=== PATIENT | female | born 1960 | race Caucasian/White ===

== ENCOUNTER 2021-12-30 06:06 | Observation (INO) | payer BC ==
[2021-12-30] VITALS (10 sets, daily range): BP systolic 121–165; BP diastolic 63–93; PULSE 45–80; TEMP 97.5–98.6
[2021-12-30] MEDS ORDERED: METAMUCIL3.4 GM/Dos PO (07:28)
[2021-12-30] MEDS ORDERED: SENNA-S 50 MG-81 TAB PO (07:28)
[2021-12-30] MEDS ORDERED: FLONASEALLERGY NS (07:29)
--- NOTE | 2021-12-30 13:02 | NUR ---
PT ARRIVED TO ROOM 327 @ 1045, ACCOMPANYING. ANUJA WRAP DRESSING ET ICE PACK IN PLACE TO LEFT KNEE. SCDS IN PLACE TO BILATERAL LEGS. PT IS A&O X3, DID NOT HAVE ANY FEELING TO HER BLE WHEN ARRIVING, HAS SINCE BEGUN TO HAVE A TINGLING SENSATION IN HER BILATERAL FEET ET SENSES LIGHT TOUCH. PT DENIES PAIN. HOB IS ELEVATED ET PT IS EATING LUNCH, TOLERATING WELL WITH NO NAUSEA.
[2021-12-30 13:04] LABS: CALCIUM 8.4 mg/dL (8.4-10.2); CREATININE, serum 0.73 mg/dL (0.57-1.11); MAGNESIUM 1.8 mg/dL (1.6-2.6); POTASSIUM 3.9 mmol/L (3.5-4.5)
--- NOTE | 2021-12-30 14:30 | NUR ---
PT RESTING IN BED, HAS LEFT KNEE ELAVTED. PT REPORTS THAT PHYSICAL THERAPY HELPED HER UP TO THE BR A SHORT WHILE AGO ET SHE WAS ABLE TO URINATE. PT STATES THAT SHE NOW HAS MORE FEELING IN HER BILATERAL FEET BUT IS STILL HAVING SOME TINGLING. PT DENIES PAIN, IS ENCOURAGED TO LET STAFF KNOW WHEN SHE BEGINS HAVING ANY, VERBALIZES UNDERSTANDING.
--- NOTE | 2021-12-30 18:20 | NUR ---
PT IN BED RESTING, HAS EATEN DINNER, SPOUSE IS @ BEDSIDE. PT HAS BEEN UP TO THE BR TO URINATE, UTILIZES WALKER ET GAIT BELT. PT TOLERATES WELL BUT DOES HAVE SOME INCREASED PAIN WITH MOVEMENT OF HER LEGS. PO ROXICODONE WAS ADMINISTERED ET PT STATES THAT IT DID RELIEVE PAIN.
[2021-12-31 00:20] VITALS: BP 122/62; PULSE 67; TEMP 98.5
[2021-12-31 04:36] VITALS: BP 122/83; PULSE 65; TEMP 98.6
[2021-12-31 06:45] LABS: HEMATOCRIT 38.1 % (37.0-47.0); HEMOGLOBIN 12.3 g/dl (12.5-16.0)
[2021-12-31 07:47] VITALS: BP 169/80; PULSE 50; TEMP 97.4
--- NOTE | 2021-12-31 10:17 | NUR ---
Ict Business Development Manager met with patient to discuss discharge planning. Patient lives in [place], [place] with her , David (ph#[phone]) and sees Dr. Edwin Aaron for primary care. Patient obtains medications from [facility] in [place] with no difficulties and reports she is retired. Patient uses a CPAP at home and no other DME, but needs assistance ordering a front wheeled walker for recovery from her surgery. Patient is agreeable to have FWW ordered from [facility]. Patient is normally independent with ADLS and plans to return home at discharge. Patient has used [facility] in the past and plans to call them to get established for care again. SW contacted [facility] and faxed referral/order for FWW. Discharge Plan: Home, SW assisting with FWW
--- NOTE | 2021-12-31 10:23 | NUR ---
PT CONTINUES TO HAVE PAIN AFTER PO ROXICODONE ADMINISTRATION BUT STATES THAT IT IS MILD. PT REFUSING DEMEROL INJECTION @ THIS TIME, WOULD LIKE TO HOLD OFF, STATES THAT SHE WILL INFORM STAFF IF PAIN INCREASES. PT HAS BEEN HAVING "CRAMPING" PAIN IN HER LEFT CALF. PT ENCOURAGED TO CONTINUE EXERCISES WHILE SITTING IN CHAIR, HEATING PAD IS IN PLACE. PT DENIES NEEDS. CALL LIGHT WITHIN REACH.
[2021-12-31 11:50] VITALS: BP 137/69; PULSE 48; TEMP 98.4
--- NOTE | 2021-12-31 12:21 | NUR ---
Elva: Hindu Situation: Associate Software Application Engineer stopped by on rounds Background: PT seems well content. 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 Assessment: PT has a strong elva. She seems very encouraged today Recommendation: Associate Software Application Engineer will follow up as needed
[2021-12-31 15:53] VITALS: BP 120/62; PULSE 54; TEMP 97.6
--- NOTE | 2021-12-31 18:20 | NUR ---
PT EATING DINNER IN BED WITH HOB ELEVATED, @ BEDSIDE. LEFT LEG ELEVATED ET ICE PACK IS ON. PT CONTINUES TO HAVE LEFT CALF PAIN, STATES THAT KNEE PAIN IS MINIMAL ET ONLY WITH MOVEMENT. PT DESCRIBES CALF PAIN BURNING, WORSENS WITH MOVEMENT. PEDAL PULSES EASILY PALPATED. SCDs ET RALPH HOSE IN PLACE TO BILATERAL LEGS.
--- NOTE | 2021-12-31 19:38 | NUR ---
ASSSESSMENT COMPLETE. PT. SITTING UP IN BED WATCHING TV. A&O. COMPLAINING OF BURNING PAIN IN LEFT KNEE AND SOME TIGHTNESS IN THAT THIGH. DRESSING IS CD&I. INT TO RIGHT HAND. CALL LIGHT IN REACH. NO FURTHER NEEDS AT THIS TIME.
[2021-12-31 20:17] VITALS: BP 132/63; PULSE 60; TEMP 98.2
[2022-01-01 00:04] VITALS: BP 167/80; PULSE 54; TEMP 98.1
[2022-01-01 04:18] VITALS: BP 156/91; BP 180/78; PULSE 50; TEMP 98.8
--- NOTE | 2022-01-01 05:53 | NUR ---
PT. SPENT THE NIGHT SLEEPING WITH A DOSE OF CORAL AND TYLENOL GIVEN BEFORE MIDNIGHT (SEE EMAR). PT. WOULD LIKE TO HOLD NEXT DOSE OF CORAL UNTIL CLOSER TO TIME FOR PT. CALL LIGHT IN REACH. NO FURTHER NEEDS AT THIS TIME.
--- NOTE | 2022-01-01 06:50 | NUR ---
Pt reports that she is doing okay right now. Pt aware of the doppler that she will be having today, then she is hopeful to get to go home after. Pt reports wanting to take something for pain prior to therapy. No needs verbalized at this time, will continue to monitor
[2022-01-01 06:56] LABS: HEMOGLOBIN 11.7 g/dl (12.5-16.0)
[2022-01-01 07:03] LABS: HEMATOCRIT 35.7 % (37.0-47.0)
[2022-01-01 08:09] VITALS: BP 161/83; PULSE 55; TEMP 97.5
--- NOTE | 2022-01-01 08:25 | NUR ---
Doppler has been completed, no DVT seen. PRN roxicodone given, pain 5/10. Pt has not ordered breakfast yet, says she will soon. Pt is aware that therapy will be around soon to work with her. Aquacell to left knee. Removed mayte wrap for doppler to be completed. Left leg elevated on pillow, not below knee. Fresh ice pack applied. Pt removed wrap from left arm and is reapplying. Morning medications given, no needs verbalized, call light within reach
[2022-01-01] MEDS ORDERED: ULTRAM ER100 MG PO ×3 (09:03→09:58)
[2022-01-01] MEDS ORDERED: CEPHALEXIN500 M1 PO (09:04)
[2022-01-01] MEDS ORDERED: ZOHYDRO ER50 MG PO ×3 (09:06→09:58)
[2022-01-01] MEDS ORDERED: ASPI325T6 PO (09:07)
--- NOTE | 2022-01-01 09:58 | NUR ---
Pt has worked with PT and OT. OT assisted her with getting a shower. Pt happy to be going home today. Awaiting a walker from supply
--- NOTE | 2022-01-01 11:13 | NUR ---
Reviewed discharge instructions with pt and her spouse. All questions answered. INT removed from right hand. Awaiting walker at this time
--- NOTE | 2022-01-01 11:55 | NUR ---
Pts walker has been delivered, pt esorted out via wheelchair
--- NOTE | 2022-01-01 14:07 | NUR ---
Wedding Cake Designer coordinated the delivery of patient's FWW to her room. Patient to discharge home today.
== END 2022-01-01 11:58 | disposition home or self-care (01) ==
LOC: SDCO 06:06 → SURG 10:45 → SDCO 11:00 → SURG 12-31 14:07
PROVIDERS: Internal Medicine; ADMIT Orthopaedic Surgery
DX: M17.12 Unilateral primary osteoarthritis, left knee (principal); M25.562 Pain in left knee; G47.33 Obstructive sleep apnea (adult) (pediatric); Z99.89 Dependence on other enabling machines and devices
CPT/HCPCS: OP; 99203; C1713; C1776; G0378; J0690; J1100; J1885; J2250; J2270; J2405; J2704; J2795; J3010; J7030; J7120